=== PATIENT | female | born 1935 | race Caucasian/White ===

== ENCOUNTER 2022-09-02 11:21 | Inpatient (IN) | payer MEDICARE, BC ==
[~2022-09-02] VITALS: Ht 152.4 cm; Wt 47.2 kg
[2022-09-02 12:11] LABS: HEMATOCRIT 35.2 % (31.2-41.9); MEAN CORPUSCULAR HEMOGLOBIN 29.2 uug (24.7-32.8); MEAN CORPUSCULAR VOLUME 89.4 fL (75.5-95.3); PLATELET COUNT (AUTO) 298 K/uL (179-408)
[2022-09-02] MEDS ORDERED: FENTANYL CITRATE 100 MCG/2 ML AMPUL IV ONE (12:15)
[2022-09-02] MEDS ORDERED: MULT-594 PO (12:17)
[2022-09-02] MEDS ORDERED: AMLO-212 PO (12:17)
[2022-09-02] MEDS ORDERED: TRAZ-182 PO (12:17)
[2022-09-02] MEDS ORDERED: FENTANYL CITRATE 100 MCG/2 ML AMPUL ONE (12:18)
[2022-09-02 12:24] LABS: POTASSIUM 4.2 mmol/L (3.5-5.1)
[2022-09-02] MEDS ORDERED: IV D5 1/2 NS 1000 ML 1,000 ML IV PRN (15:00)
[2022-09-02] MEDS ORDERED: REMEDY ESSENTIAL ZINC PASTE 113 GM TP PRN (15:00)
[2022-09-02] MEDS ORDERED: ONDANSETRON 4 MG/2 ML VIAL IV PRN (15:00)
[2022-09-02] MEDS ORDERED: HYDROCODONE/APAP 5-325MG TABLET PO PRN (15:00)
[2022-09-02] MEDS ORDERED: MAGNESIUM HYDROXIDE 30 ML LIQUID UDC PO PRN (15:00)
[2022-09-02] MEDS ORDERED: MORPHINE SULFATE 2 MG/1 ML DISP.SYRIN IV PRN (15:00)
[2022-09-02 18:20] VITALS: BP 145/75
[2022-09-02 20:10] VITALS: BP 128/63
[2022-09-02] MEDS: TRAZODONE 50 MG TABLET PO SCH (20:20)
[2022-09-02] MEDS: ACETAMINOPHEN 325 MG TABLET PO PRN (20:20)
[2022-09-03 04:00] VITALS: BP 111/58
[2022-09-03 06:44] LABS: HEMATOCRIT 28.2 % (31.2-41.9); MEAN CORPUSCULAR HEMOGLOBIN 29.6 uug (24.7-32.8); PLATELET COUNT (AUTO) 263 K/uL (179-408)
[2022-09-03 07:28] LABS: CARBON DIOXIDE 27 mmol/L (21-32); CHLORIDE 105 mmol/L (98-107); CREATININE 0.7 mg/dL (0.6-1.3); GLUCOSE 122 mg/dL (74-106); MAGNESIUM 2.1 mg/dL (1.8-2.4); POTASSIUM 3.9 mmol/L (3.5-5.1); UREA NITROGEN, BLOOD 26 mg/dL (7-18)
[2022-09-03] MEDS ORDERED: IV D5 1/2 NS 1000 ML 1,000 ML IV PRN (08:33)
[2022-09-03] MEDS: AMLODIPINE 5 MG TABLET PO SCH (08:34)
[2022-09-03] MEDS: MULTIVITAMINS,THERAPEUTIC TABLET PO SCH (08:34)
[2022-09-03] MEDS ORDERED: Medication Not On Formulary EA (Multivitamins (Multivitamin) 1 TAB) PO SCH (09:00)
[2022-09-03] MEDS ORDERED: IV NS 1000 ML 1,000 ML IV ONE (10:45)
[2022-09-03] MEDS ORDERED: IV NORMAL SALINE 500 ML IV ONE (11:00)
[2022-09-03 11:02] LABS: *BILIRUBIN,URIN NEGATIVE (NEGATIVE); *BLOOD, URINE 1+ (NEGATIVE); *CLARITY,URINE CLEAR (CLEAR); *COLOR,URINE YELLOW (YELLOW); *KETONES,URINE NEGATIVE (NEGATIVE); *UROBILINOGEN,URINE 0.2 E.U./dl (NORMAL); LEUKOCYTE ESTERASE ,URINE TRACE (NEGATIVE); NITRITE, URINE NEGATIVE (NEGATIVE); UGLUCOSE NEGATIVE (NEGATIVE)
[2022-09-03 11:45] VITALS: BP 143/62
[2022-09-03 15:46] LABS: BACTERIA,URINE NONE SEEN /HPF (NONE SEEN); SQUAMOUS EPITHELIAL CELL,UR FEW /HPF (NONE SEEN); WBC,URINE 0-3 /HPF (0-3)
[2022-09-03] MEDS ORDERED: ROCURONIUM BROMIDE 50 MG/5 ML VIAL ONE (15:55)
[2022-09-03] MEDS ORDERED: FENTANYL CITRATE 100 MCG/2 ML AMPUL ONE (15:55)
[2022-09-03] MEDS ORDERED: VANCOMYCIN 1000 MG VIAL ONE (17:25)
[2022-09-03 17:39] VITALS: BP 149/79
[2022-09-03] MEDS ORDERED: MORPHINE SULFATE 2 MG/1 ML DISP.SYRIN IV PRN (18:15)
[2022-09-03] MEDS ORDERED: CEFAZOLIN 1 G VIAL ONE (18:49)
[2022-09-03] MEDS ORDERED: PROPOFOL 200 MG/20 ML BOTTLE ONE (18:49)
[2022-09-03] MEDS ORDERED: ONDANSETRON 4 MG/2 ML VIAL ONE (18:49)
[2022-09-03] MEDS ORDERED: NEOSTIGMINE METHYLSULFATE 10 MG/10 ML VIAL ONE (18:49)
[2022-09-03] MEDS ORDERED: METOCLOPRAMIDE HCL 10 MG/2 ML VIAL ONE (18:49)
[2022-09-03] MEDS ORDERED: LIDOCAINE-MPF 2% 5 ML VIAL ONE (18:49)
[2022-09-03] MEDS ORDERED: GLYCOPYRROLATE 0.2 MG/ML VIAL ONE (18:49)
[2022-09-03] MEDS: IV D5W-0.45% NS +20 KCL 1,000 ML IV PRN (19:42)
[2022-09-03] MEDS: TRAZODONE 50 MG TABLET PO SCH (20:09)
[2022-09-03 20:10] VITALS: BP 121/57
[2022-09-04] VITALS (11 sets, daily range): BP systolic 110–127; BP diastolic 53–63
[2022-09-04] MEDS: CEFAZOLIN 1 G in IV DEXTROSE 5% 50 ML IV SCH ×2 (00:10→08:28)
[2022-09-04 06:40] LABS: HEMATOCRIT 24.1 % (31.2-41.9); MEAN CORPUSCULAR HEMOGLOBIN 29.2 uug (24.7-32.8); PLATELET COUNT (AUTO) 275 K/uL (179-408)
[2022-09-04 07:14] LABS: CREATININE 0.8 mg/dL (0.6-1.3); MAGNESIUM 1.9 mg/dL (1.8-2.4); PHOSPHOROUS 3.2 mg/dL (2.5-4.9); POTASSIUM 4.7 mmol/L (3.5-5.1)
[2022-09-04] MEDS: MULTIVITAMINS,THERAPEUTIC TABLET PO SCH (08:22)
[2022-09-04] MEDS: AMLODIPINE 5 MG TABLET PO SCH (08:22)
[2022-09-04] MEDS: ACETAMINOPHEN 325 MG TABLET PO PRN (11:33)
[2022-09-04] MEDS ORDERED: IV NORMAL SALINE 500 ML BAG IV ONE (14:00)
[2022-09-04] MEDS: IV D5W-0.45% NS +20 KCL 1,000 ML IV PRN (18:42)
[2022-09-04] MEDS: TRAZODONE 50 MG TABLET PO SCH (21:20)
[2022-09-05 03:50] VITALS: BP 141/70
[2022-09-05 06:56] LABS: HEMATOCRIT 28.5 % (31.2-41.9); MEAN CORPUSCULAR HEMOGLOBIN 29.9 uug (24.7-32.8); MEAN CORPUSCULAR VOLUME 88.7 fL (75.5-95.3); PLATELET COUNT (AUTO) 237 K/uL (179-408)
[2022-09-05 07:52] LABS: CARBON DIOXIDE 26 mmol/L (21-32); CHLORIDE 109 mmol/L (98-107); CREATININE 0.7 mg/dL (0.6-1.3); GLUCOSE 119 mg/dL (74-106); PHOSPHOROUS 2.3 mg/dL (2.5-4.9); POTASSIUM 4.6 mmol/L (3.5-5.1); UREA NITROGEN, BLOOD 19 mg/dL (7-18)
[2022-09-05] MEDS: AMLODIPINE 5 MG TABLET PO SCH (08:09)
[2022-09-05] MEDS: MULTIVITAMINS,THERAPEUTIC TABLET PO SCH (08:09)
[2022-09-05] MEDS ORDERED: HYDR-3972 PO (10:34)
[2022-09-05] MEDS ORDERED: CEPH500C2 PO (10:34)
[2022-09-05 11:33] VITALS: BP 120/58
[2022-09-05] MEDS: ACETAMINOPHEN 325 MG TABLET PO PRN (11:36)
[2022-09-05] MEDS ORDERED: NEUTRA PHOS PACKET PO SCH (16:00)
== END 2022-09-05 15:35 | disposition home health service (06) | DRG 481 ==
LOC: ER 11:21 → MEDSURG3 16:16
PROVIDERS: ADMIT Registered Nurse; ATTEND Registered Nurse
PROC: 0QS636Z Reposition Right Upper Femur with Intramedullary Internal Fixation Device, Percutaneous Approach (ICD-10-PCS; principal; 2022-09-02)
PROC: 30233N1 Transfusion of Nonautologous Red Blood Cells into Peripheral Vein, Percutaneous Approach (ICD-10-PCS; 2022-09-04)
DX: M84.451A Pathological fracture, right femur, initial encounter for fracture (principal); N39.0 Urinary tract infection, site not specified; D25.9 Leiomyoma of uterus, unspecified; K57.30 Diverticulosis of large intestine without perforation or abscess without bleeding; B96.89 Other specified bacterial agents as the cause of diseases classified elsewhere; R79.89 Other specified abnormal findings of blood chemistry; I10 Essential (primary) hypertension; F03.90 Unspecified dementia, unspecified severity, without behavioral disturbance, psychotic disturbance, mood disturbance, and anxiety; Z79.899 Other long term (current) drug therapy; D64.89 Other specified anemias; R26.2 Difficulty in walking, not elsewhere classified
CPT/HCPCS: 36415; 71045; 72170; 72192; 73503; 73700; 83735; 84100; 85025; 85730; 86850; 86900; 86901; 86920; 93005; 93307; A4649; A4663; A6209; C1713; G0378; J0690; J2405; J2765; J3010; J3370; J3490; J7040; P9016